=== PATIENT | male | born 1960 | race Caucasian/White ===

== ENCOUNTER 2017-12-23 10:38 | Emergency (ER) | payer BC ==
[~2017-12-23] VITALS: Ht 172.7 cm; Wt 83.0 kg
[2017-12-23 10:39] VITALS: BP 114/65; PULSE 65; RESP 16; TEMP 97.8; O2SAT 95
[2017-12-23 11:14] VITALS: O2SAT 96
[2017-12-23 11:14] LABS: AUTOMATED NEUTROPHIL # 2.5 TH/MM3 (1.8-7.7); BASOPHIL % 0.9 % (0.0-2.0); EOSINOPHIL # 0.2 TH/MM3 (0-0.4); EOSINOPHIL % 3.4 % (0.0-4.0); HEMOGLOBIN 15.1 GM/DL (13.0-17.0); LYMPHOCYTE # 1.4 TH/MM3 (1.0-4.8); MEAN CORPUSCULAR HEMOGLOBIN 29.6 PG (27.0-34.0); MEAN CORPUSCULAR HGB CONC 34.4 % (32.0-36.0); MEAN PLATELET VOLUME 7.4 FL (7.0-11.0); MONO % 15.5 % (0.0-8.0); MONOCYTE # 0.8 TH/MM3 (0-0.9); NEUT % 52.2 % (16.0-70.0); PLATELET COUNT 169 TH/MM3 (150-450); RED BLOOD COUNT 5.12 MIL/MM3 (4.50-5.90); RED CELL DISTRIBUTION WIDTH 13.1 % (11.6-17.2); WHITE BLOOD COUNT 4.9 TH/MM3 (4.0-11.0)
[2017-12-23 11:30] LABS: ALBUMIN 3.9 GM/DL (3.4-5.0); AST (GOT) 30 U/L (15-37); BICARBONATE 25.1 MEQ/L (21.0-32.0); BLOOD UREA NITROGEN 12 MG/DL (7-18); CALCIUM 8.7 MG/DL (8.5-10.1); CHLORIDE 106 MEQ/L (98-107); CREATININE 1.23 MG/DL (0.60-1.30); GLOMERULAR FILTRATION RATE 61 ML/MIN (>89); GLUCOSE,RANDOM 122 MG/DL (74-106); SODIUM (NA) 138 MEQ/L (136-145)
[2017-12-23 11:31] LABS: ALT (GPT) 38 U/L (12-78)
[2017-12-23 11:33] LABS: ALKALINE PHOSPHATASE 56 U/L (45-117); TOTAL BILIRUBIN ADULT 1.3 MG/DL (0.2-1.0); TOTAL PROTEIN 7.3 GM/DL (6.4-8.2)
--- NOTE | 2017-12-23 11:44 | PD ---
HPI Chief Complaint: Syncope/Near-Syncope Time Seen by Provider: 11:03 Travel History International Travel<30 days: No Contact w/Intl Traveler<30days: No Traveled to known affect area: No History of Present Illness HPI Patient states that while he was having breakfast he felt lightheaded and dizzy , did not feel good and felt like he was going to pass out. Decided to triangle into the car to try and relax. Apparently during this timeframe his daughter and witnessed him roll his eyes back, and his tongue protruded out , but no seizure activity was noted. This episode happened a second time while he was in the vehicle again. Again the patient stated that he felt dizzy, lightheaded but in addition he also became sweaty/diaphoretic. Patient denied any headache/chest pain/back pain/abdominal pain/nausea, vomiting, diarrhea. Patient states that about 15 years ago he had a similar episode, and was seen by country manager Dr. 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 Patient also gives a history of his sister who 63 and older brother who is 70 both have very similar symptoms and that no one has been able to diagnosed him. However the patient denies that he has been seen by plant clerk. Primary care physician is Dr. Ronda STALEY Social History Alcohol Use: Yes Tobacco Use: No Substance Use: No Physical Exam Narrative GENERAL: SKIN: Warm and dry. HEAD: Atraumatic. Normocephalic. EYES: Pupils equal and round. No scleral icterus. No injection or drainage. ENT: No nasal bleeding or discharge. Mucous membranes pink and moist. NECK: Trachea midline. No JVD. CARDIOVASCULAR: Regular rate and rhythm. RESPIRATORY: No accessory muscle use. Clear to auscultation. Breath sounds equal bilaterally. GASTROINTESTINAL: Abdomen soft, non-tender, nondistended. MUSCULOSKELETAL: Extremities without clubbing, cyanosis, or edema. No obvious deformities. NEUROLOGICAL: Awake and alert. No obvious cranial nerve deficits. Motor grossly within normal limits. Five out of 5 muscle strength in the arms and legs. Normal speech. PSYCHIATRIC: Appropriate mood and affect; insight and judgment normal. Data Data Last Documented VS Vital Signs Date Time Temp Pulse Resp B/P (MAP) Pulse Ox O2 Delivery O2 Flow Rate FiO2 12/23/17 13:30 68 17 124/76 (92) 98 Room Air 12/23/17 10:39 97.8 Orders Orders Electrocardiogram (12/23/17 11:01) Complete Blood Count With Diff (12/23/17 11:01) Comprehensive Metabolic Panel (12/23/17 11:01) Iv Access Insert/Monitor (12/23/17 11:01) Ckmb (Isoenzyme) Profile (12/23/17 11:03) Troponin I (12/23/17 11:03) B-Type Natriuretic Peptide (12/23/17 11:03) Lipase (12/23/17 11:03) Urinalysis - C+S If Indicated (12/23/17 11:03) Thyroid Stimulating Hormone (12/23/17 11:03) Chest, Single Ap (12/23/17 11:03) Ct Brain W/O Iv Contrast(Rout) (12/23/17 11:03) Ecg Monitoring (12/23/17 11:03) Oximetry (12/23/17 11:03) Drug Screen, Random Urine (12/23/17 11:03) Alcohol (Ethanol) (12/23/17 11:03) Salicylates (Aspirin) (12/23/17 11:03) Tylenol (Acetaminophen) (12/23/17 11:03) CKMB (12/23/17 11:00) CKMB% (12/23/17 11:00) Labs Laboratory Tests Test 12/23/17 11:00 12/23/17 12:00 White Blood Count 4.9 TH/MM3 Red Blood Count 5.12 MIL/MM3 Hemoglobin 15.1 GM/DL Hematocrit 44.0 % Mean Corpuscular Volume 86.0 FL Mean Corpuscular Hemoglobin 29.6 PG Mean Corpuscular Hemoglobin Concent 34.4 % Red Cell Distribution Width 13.1 % Platelet Count 169 TH/MM3 Mean Platelet Volume 7.4 FL Neutrophils (%) (Auto) 52.2 % Lymphocytes (%) (Auto) 28.0 % Monocytes (%) (Auto) 15.5 % Eosinophils (%) (Auto) 3.4 % Basophils (%) (Auto) 0.9 % Neutrophils # (Auto) 2.5 TH/MM3 Lymphocytes # (Auto) 1.4 TH/MM3 Monocytes # (Auto) 0.8 TH/MM3 Eosinophils # (Auto) 0.2 TH/MM3 Basophils # (Auto) 0.0 TH/MM3 CBC Comment DIFF FINAL Differential Comment Blood Urea Nitrogen 12 MG/DL Creatinine 1.23 MG/DL Random Glucose 122 MG/DL Total Protein 7.3 GM/DL Albumin 3.9 GM/DL Calcium Level 8.7 MG/DL Alkaline Phosphatase 56 U/L Aspartate Amino Transf (AST/SGOT) 30 U/L Alanine Aminotransferase (ALT/SGPT) 38 U/L Total Bilirubin 1.3 MG/DL Sodium Level 138 MEQ/L Potassium Level 4.0 MEQ/L Chloride Level 106 MEQ/L Carbon Dioxide Level 25.1 MEQ/L Anion Gap 7 MEQ/L Estimat Glomerular Filtration Rate 61 ML/MIN Total Creatine Kinase 121 U/L Creatine Kinase MB LESS THAN 0.5 NG/ML Troponin I LESS THAN 0.02 NG/ML B-Type Natriuretic Peptide 8 PG/ML Lipase 109 U/L Thyroid Stimulating Hormone 3rd Gen 2.460 uIU/ML Salicylates Level LESS THAN 1.7 MG/DL Acetaminophen Level 4.5 MCG/ML Ethyl Alcohol Level LESS THAN 3 MG/DL Urine Color YELLOW Urine Turbidity CLEAR Urine pH 5.5 Urine Specific [place] 1.035 Urine Protein 30 mg/dL Urine Glucose (UA) NEG mg/dL Urine Ketones NEG mg/dL Urine Occult Blood NEG Urine Nitrite NEG Urine Bilirubin NEG Urine Urobilinogen LESS THAN 2.0 MG/DL Urine Leukocyte Esterase NEG Urine RBC 1 /hpf Urine WBC 2 /hpf Urine Squamous Epithelial Cells <1 /hpf Urine Hyaline Casts 2 /lpf Urine Granular Casts 13 /lpf Urine Mucus MOD /lpf Microscopic Urinalysis Comment CULT NOT INDICATED Urine Opiates Screen NEG Urine Barbiturates Screen NEG Urine Amphetamines Screen NEG Urine Benzodiazepines Screen NEG Urine Cocaine Screen NEG Urine Cannabinoids Screen NEG MDM Medical Decision Making Medical Screen Exam Complete: Yes Emergency Medical Condition: Yes Medical Record Reviewed: Yes Interpretation(s) EKG shows normal sinus rhythm, 65 bpm, nonspecific ST-T wave changes Differential Diagnosis Arrhythmia versus ND versus non-STEMI versus anemia versus dehydration versus brain mass versus intracranial hemorrhage versus electrolyte abnormalities versus thyroid Narrative Course Patient currently has no intent on being admitted to the hospital for any additional testing and would like to have all additional testing be performed as an outpatient only CBC shows no leukocytosis, no anemia, no left shift, and normal platelet count. UA does not show any evidence of a UTI Toxicology screen other than the presence of Tylenol and very low levels 4.5, it is negative for salicylates, opiates, barbiturates, amphetamines, benzos , cocaine, alcohol or marijuana Chest x-ray read by radiologist as no acute disease CT scan read by radiologist as normal examination Diagnosis Primary Impression: Syncope Patient Instructions: General Instructions, Syncope (ED) Additional Instructions: Please follow-up with your primary care physician for further referral to country manager for additional testing and a reevaluation. Disposition: 01 DISCHARGE HOME Condition: Stable Sahil Nice MD Dec 23, 2017 11:44
--- NOTE | 2017-12-23 12:01 | RADRPT ---
EXAM DATE/TIME: 12/23/2017 11:27 [facility] COMPARISON: No previous studies available for comparison. INDICATIONS : Syncopal episode MEDICAL HISTORY : None. SURGICAL HISTORY : None. ENCOUNTER: Initial ACUITY: 1 day PAIN SCORE: 0/10 LOCATION: Bilateral chest FINDINGS: A single view of the chest demonstrates the lungs to be symmetrically aerated without evidence of mas s, infiltrate or effusion. The cardiomediastinal contours are unremarkable. Osseous structures are intact. CONCLUSION: No acute disease. Johnathon Quiroz MD on December 23, 2017 at 11:59 Board Certified Radiologist. This report was verified electronically.
[2017-12-23 12:29] LABS: ACETAMINOPHEN 4.5 MCG/ML (10.0-30.0)
[2017-12-23 12:38] LABS: BILIRUBIN, URINE NEG (NEG); BLOOD, URINE NEG (NEG); GLUCOSE,URINE NEG (NEG); HYALINE CAST, URINE 2 /lpf (RARE); KETONE, URINE NEG (NEG); MUCUS URINE MOD /lpf (OCC); NITRITE,URINE NEG (NEG); PH, URINE 5.5 (5.0-8.5); SQUAMOUS EPITHELIAL CELL URINE <1 /hpf (0-5); URINE COLOR YELLOW (YELLW/STRAW); URINE LEUKOCYTE ESTERASE NEG (NEG)
[2017-12-23 12:38] LABS: TROPONIN I LESS THAN 0.02 NG/ML (0.02-0.05)
--- NOTE | 2017-12-23 13:20 | RADRPT ---
EXAM DATE/TIME: 12/23/2017 13:04 [facility] COMPARISON: No previous studies available for comparison. INDICATIONS : Syncope RADIATION DOSE: 35.29 CTDIvol (mGy) MEDICAL HISTORY : Past episodes of syncope, testing has been non conclusive SURGICAL HISTORY : None. ENCOUNTER: Initial ACUITY: 1 day PAIN SCALE: 0/10 LOCATION: cranial TECHNIQUE: Multiple contiguous axial images were obtained of the head. Using automated exposure control and adj ustment of the mA and/or kV according to patient size, radiation dose was kept as low as reasonably a chievable to obtain optimal diagnostic quality images. DICOM format image data is available electro nically for review and comparison. FINDINGS: CEREBRUM: The ventricles are normal for age. No evidence of midline shift, mass lesion, hemorrhage or acute in farction. No extra-axial fluid collections are seen. POSTERIOR FOSSA: The cerebellum and brainstem are intact. The 4th ventricle is midline. The cerebellopontine angle i s unremarkable. EXTRACRANIAL: The visualized portion of the orbits is intact. SKULL: The calvaria is intact. No evidence of skull fracture. CONCLUSION: Normal examination. Tom Womack MD on December 23, 2017 at 13:18 Board Certified Radiologist. This report was verified electronically.
[2017-12-23 13:30] VITALS: BP 124/76; PULSE 68; RESP 17; O2SAT 98
[2017-12-23 14:33] VITALS: BP 130/68
--- NOTE | 2017-12-24 09:10 | EKG ---
Date Performed: 12/23/2017 Time Performed: 11:06:47 PTAGE: 57 years EKG: Sinus rhythm MODERATE INTRAVENTRICULAR CONDUCTION DELAY NONSPECIFIC T-WAVE ABNORMALITY BORDERLINE ECG NO PREVIOUS TRACING DOCTOR: Rose Marie Almaraz Interpretating Date/Time 12/24/2017 09:09:02
== END 2017-12-23 14:35 | disposition home or self-care (01) ==
LOC: NEPC 10:38
DX: R55 Syncope and collapse (principal); R42 Dizziness and giddiness; R94.31 Abnormal electrocardiogram [ECG] [EKG]
CPT/HCPCS: 70450; 71045; 80053; 80307; 81001; 82550; 82552; 83690; 83880; 84443; 84484; 85025; 93005